=== PATIENT | female | born 1945 | race Caucasian/White ===

== ENCOUNTER 2017-11-22 12:30 | Emergency (ER) | payer MEDICARE, OTHER ==
--- NOTE | 2017-11-22 13:27 | XRAY Preliminary Report ---
Exam: XR CHEST 2 VIEW X-RAY IMPRESSION: Normal 2-view chest radiography. [facility] SITE ID: [id number]
--- NOTE | 2017-11-22 13:42 | ED Physician Documentation ---
PD HPI DYSPNEA - Stated complaint Stated Complaint: COUGH,SOA - Chief complaint Chief Complaint: Resp - History obtained from History obtained from: Patient - History of Present Illness Timing - onset: How many days ago (2-3) Timing - onset during: Light activity Timing - duration: Days Timing - details: Gradual onset, Still present Inciting event(s): URI (has cough and feeling of malaise.) Associated symptoms: Cough. No: Fever (but chills and malaise), Hemoptysis, Wheezing, Palpitations, Bilateral edema, Unilateral edema Similar symptoms before: Has not had sx before Recently seen: Surgery (had some reconstructive surgery on breast/scar tissue 6 days ago, with tight wrap on chest since (until today). Having some cough and dyspnea develop the past 2-3 days. No abrupt onset. Some mild chills and malaise. Has scratchy throat still, which has persisted since time of recovery from surgery.) Review of Systems Constitutional: reports: Chills, Myalgias. denies: Fever Nose: denies: Congestion Throat: reports: Sore throat Respiratory: reports: Dyspnea, Cough. denies: Wheezing GI: denies: Nausea, Vomiting, Diarrhea : denies: Dysuria, Frequency Skin: reports: Other (she has some wraps on srugical sites in ED and says she had looked at them earlier without signsf of infection.). denies: Rash Musculoskeletal: denies: Back pain, Extremity swelling Neurologic: reports: Generalized weakness. denies: Focal weakness, Numbness, Near syncope PD PAST MEDICAL HISTORY - Past Medical History Cardiovascular: None Neuro: None Endocrine/Autoimmune: None Psych: None Musculoskeletal: Osteoarthritis - Past Surgical History Past Surgical History: No General: Cholecystectomy /GROUP SALES MANAGER: Hysterectomy, Mastectomy, Other - Present Medications Home Medications: Ambulatory Orders Medication Instructions Recorded Confirmed Albuterol Sulf [Ventolin Hfa 1 - 2 puffs INH Q4HR PRN #1 inhaler 11/22/17 Inhaler] Anastrozole 1 mg PO DAILY 11/22/17 11/22/17 Benzonatate [Tessalon] 100 mg PO TID PRN #25 capsule 11/22/17 Dexamethasone [Decadron] 4 mg PO DAILY #5 tablet 11/22/17 - Allergies Allergies/Adverse Reactions: Allergies Allergy/AdvReac Type Severity Reaction Status Date / Time No Known Drug Allergies Allergy Verified 09/28/14 07:57 - Social History Does the pt smoke?: No Smoking Status: Never smoker Does the pt drink ETOH?: Yes Does the pt have substance abuse?: No PD ED PE NORMAL - Vitals Vital signs reviewed: Yes - General General: Alert and oriented X 3, No acute distress, Well developed/nourished - HEENT HEENT: Ears normal, Moist mucous membranes, Pharynx benign - Neck Neck: Supple, no meningeal sign, No adenopathy - Cardiac Cardiac: RRR, No murmur - Respiratory Respiratory: Clear bilaterally - Abdomen Abdomen: Soft, Non tender - Back Back: No CVA TTP - Derm Derm: Normal color, Warm and dry, Other (chest wall surgical sites have wraps on them now and deferred inspection at patient request. she says they appears okay earlier today without infection. ) - Extremities Extremities: No tenderness to palpate, Normal ROM s pain, No edema, No calf tenderness / cord - Neuro Neuro: Alert and oriented X 3, No motor deficit, Normal speech Results - Vitals Vitals: Oxygen O2 Source Room air - EKG (time done) 12:39 Rate: Rate (enter#) (85) Rhythm: NSR [place]: Normal Intervals: Normal [place] QRS: Normal Ischemia: Normal ST segments. No: ST elevation c/w ischemia, ST depression - Rads (name of study) chest Radiology: Prelim report reviewed (no acute process) PD MEDICAL DECISION MAKING - ED course Complexity details: reviewed results, considered differential, d/w patient Departure - Departure Disposition: 01 Home, Self Care Clinical Impression: Upper respiratory infection Qualifiers: URI type: unspecified URI Qualified Code(s): J06.9 - Acute upper respiratory infection, unspecified Dyspnea Qualifiers: Dyspnea type: shortness of breath Qualified Code(s): R06.02 - Shortness of breath Condition: Stable Record reviewed to determine appropriate education?: Yes Instructions: ED Upper Resp Infec No Abx Tx Follow-Up: Conrado Chua MD [Primary Care Provider] - Prescriptions: Albuterol Sulf [Ventolin Hfa Inhaler] 1 - 2 puffs INH Q4HR PRN #1 inhaler PRN Reason: Shortness Of Air/Wheezing Benzonatate [Tessalon] 100 mg PO TID PRN #25 capsule PRN Reason: Cough Dexamethasone [Decadron] 4 mg PO DAILY #5 tablet Comments: This sounds like you have either some irritation of the upper airway or likely viral illness given the cough and such. Your chest x-ray is clear without any signs of pneumonia. Your EKG is normal and your vital signs are good. There is no obvious severe process at this time. Use albuterol inhaler 2 puffs 4 times a day for the next 7-10 days. Keep the tight corset off and just use compressive stretchy clothing at this point. Purposeful deep breathing several times a day. Decadron daily for the next 5 days for inflammation of the upper airways. Add Tessalon if needed for cough. Recheck if worsening symptoms or if you have high fevers, purulent or productive cough, coughing blood, worse trouble breathing or other concerns. Discharge Date/Time: 11/22/17 14:46
--- NOTE | 2017-11-22 14:16 | XRAY Report ---
EXAM: CHEST RADIOGRAPHY EXAM DATE: 11/22/2017 01:06 PM. CLINICAL HISTORY: Chronic cough. COMPARISON: None. TECHNIQUE: 2 views. FINDINGS: Lungs/Pleura: No focal opacities evident. No pleural effusion. No pneumothorax. Normal volumes. Mediastinum: Heart and mediastinal contours are unremarkable. Other: Remote left breast surgery. Cholecystectomy. Kyphoscoliosis. IMPRESSION: Normal 2-view chest radiography. [facility] Referring Provider Line: [phone] SITE ID: [id number]
[2017-11-22] MEDS ORDERED: DEXAMETHASONE 10 MG/ML VIAL PO STA (14:35)
[2017-11-22 14:43] VITALS: BP 139/77
== END 2017-11-22 14:46 | disposition home or self-care (01) ==
LOC: ED 12:30
DX: J06.9 Acute upper respiratory infection, unspecified (principal); R06.02 Shortness of breath; R94.31 Abnormal electrocardiogram [ECG] [EKG]
CPT/HCPCS: 71046; 93005; 99283

== ENCOUNTER 2021-03-05 09:44 | Outpatient (CLI) | payer MEDICARE, OTHER ==
[2021-03-05 15:51] LABS: URIC ACID 4.6 mg/dL (2.6-7.2)
[2021-03-05 16:01] LABS: CRP - C-REACTIVE PROTEIN < 1.0 mg/dL (0-1.0)
[2021-03-05 17:00] LABS: RHEUMATOID FACTOR NEGATIVE (Negative)
[2021-03-07 16:46] LABS: ANA SCREEN NEGATIVE (NEGATIVE)
== END 2021-03-05 09:45 | disposition home or self-care (01) ==
LOC: LAB.S 09:44
PROVIDERS: ATTEND Internal Medicine
DX: M25.50 Pain in unspecified joint (principal); R60.0 Localized edema
CPT/HCPCS: 36415; 84550; 85379; 85651; 86038; 86140; 86430

== ENCOUNTER 2021-03-20 14:59 | Outpatient (CLI) | payer MEDICARE, OTHER ==
--- NOTE | 2021-03-20 16:59 | Ultrasound Report ---
PROCEDURE: Duplex Ext Veins Left INDICATIONS: EDEMA,LIMB TECHNIQUE: Real-time imaging, as well as color and pulse Doppler interrogation, were performed of the lower extr emity deep veins from the inguinal ligament to the popliteal fossa. COMPARISON: None. FINDINGS: The deep veins are normally compressible, and free of intraluminal thrombus. Color and pu lse Doppler demonstrate normal phasic intraluminal flow. There is normal augmentation response to di stal compression maneuver. IMPRESSION: No evidence of deep venous thrombosis. Reviewed by: Matt Glass MD on 03/20/2021 4:58 PM PDT Approved by: Matt Glass MD on 03/20/2021 4:58 PM PDT Station ID: [id number]
== END 2021-03-20 15:00 | disposition home or self-care (01) ==
LOC: DI 14:59
PROVIDERS: ATTEND Internal Medicine
DX: R60.0 Localized edema (principal)

== ENCOUNTER 2021-07-10 09:49 | Outpatient (CLI) | payer MEDICARE, OTHER ==
[2021-07-10 14:37] LABS: BASOPHILS # (AUTO) 0.1 10^3/uL (0.0-0.1); BASOPHILS % (AUTO) 2.3 %; EOSINOPHILS # (AUTO) 0.4 10^3/uL (0.0-0.7); EOSINOPHILS % (AUTO) 8.1 %; HCT - HEMATOCRIT 38.3 % (37.0-47.0); HGB - HEMOGLOBIN 11.9 g/dL (12.0-16.0); LYMPHOCYTES # (AUTO) 0.9 10^3/uL (1.5-3.5); LYMPHOCYTES % (AUTO) 17.4 %; MEAN CORPUSCULAR HEMOGLOBIN 28.6 pg (27.0-31.0); MEAN CORPUSCULAR HGB CONC 31.1 g/dL (32.0-36.0); MEAN CORPUSCULAR VOLUME 92.1 fL (81.0-99.0); MEAN PLATELET VOLUME 10.9 fL (7.9-10.8); MONOCYTES # (AUTO) 0.4 10^3/uL (0.0-1.0); MONOCYTES % (AUTO) 6.8 %; NEUTROPHILS # (AUTO) 3.4 10^3/uL (1.5-6.6); PLT - PLATELET COUNT 232 10^3/uL (130-450); RED BLOOD COUNT 4.16 10^6/uL (4.20-5.40); RED CELL DISTRIBUTION WIDTH 13.4 % (12.0-15.0); WHITE BLOOD COUNT 5.3 x10^3/uL (4.8-10.8)
[2021-07-10 15:01] LABS: ALBUMIN/GLOBULIN RATIO 1.3 (1.0-2.2); ALKALINE PHOSPHATASE 59 IU/L (42-121); ALT ALANINE AMINOTRANSFERASE 15 IU/L (10-60); AST ASPARTATE AMINOTRANSFERASE 13 IU/L (10-42); BILIRUBIN,TOTAL 0.6 mg/dL (0.2-1.0); BUN - BLOOD UREA NITROGEN 24 mg/dL (6-20); CALCIUM 9.5 mg/dL (8.5-10.3); CARBON DIOXIDE - CO2 30 mmol/L (21-32); CHLORIDE 102 mmol/L (101-111); CHOL/HDL RATIO 3.4 (<4.4); CHOLESTEROL 255 mg/dL; CREATININE 0.8 mg/dL (0.4-1.0); GFR - MDRD 70 (>89); GLUCOSE 130 mg/dL (70-100); HDL CHOLESTEROL 75 mg/dL; LDL CHOLESTEROL,CALCULATED 160 mg/dL; LDL/HDL RATIO 2.1 (<4.4); SODIUM 141 mmol/L (135-145); TOTAL PROTEIN 7.1 g/dL (6.7-8.2); TRIGLYCERIDES 98 mg/dL; VLDL CHOLESTEROL 20 mg/dL
== END 2021-07-10 09:50 | disposition home or self-care (01) ==
LOC: LAB.S 09:49
PROVIDERS: ATTEND Internal Medicine
DX: E78.5 Hyperlipidemia, unspecified (principal); Z79.899 Other long term (current) drug therapy
CPT/HCPCS: 36415; 80053; 80061; 83721; 85025

== ENCOUNTER 2024-05-18 13:19 | Outpatient (CLI) | payer MEDICARE, OTHER | END 2024-05-18 23:59 | disposition critical access hospital (66) | LOC: EMS 13:19 | DX: S01.81XA Laceration without foreign body of other part of head, initial encounter (principal); S01.21XA Laceration without foreign body of nose, initial encounter; S01.511A Laceration without foreign body of lip, initial encounter; W01.0XXA Fall on same level from slipping, tripping and stumbling without subsequent striking against object, initial encounter; Y92.481 Parking lot as the place of occurrence of the external cause | CPT/HCPCS: A0425; A0429 ==

== ENCOUNTER 2024-05-18 13:44 | Emergency (ER) | payer MEDICARE, OTHER ==
--- NOTE | 2024-05-18 13:54 | ED Physician Documentation ---
PD HPI Fall - Stated complaint Stated Complaint: GLF - Additional information Additional information: 78-year-old femaleWith history of osteoarthritis, cholecystectomy, hysterectomy, mastectomy presents emergency department via EMS after experiencing a mechanical ground-level fall. Patient says that she was going to push her car away at the grocery store and tripped over the curb and fell onto her right knee and face. She says that she is not on blood thinners no loss of consciousness no nausea vomiting. There is bleeding noted from her face her nose region her right hand and right knee. PD PAST MEDICAL HISTORY - Past Medical History Cardiovascular: None Endocrine/Autoimmune: None Psych: None Musculoskeletal: Osteoarthritis - Past Surgical History Past Surgical History: No General: Cholecystectomy /ROLL FORM OPERATOR: Hysterectomy, Mastectomy, Other - Present Medications Home Medications: Ambulatory Orders Medication Instructions Recorded Confirmed Albuterol Sulf [Ventolin Hfa 1 - 2 puffs INH Q4HR PRN #1 inhaler 11/22/17 Inhaler] Anastrozole 1 mg PO DAILY 11/22/17 11/22/17 Benzonatate [Tessalon] 100 mg PO TID PRN #25 capsule 11/22/17 dexAMETHasone [Decadron] 4 mg PO DAILY #5 tablet 11/22/17 Amox/Clav 875/125 [Augmentin 1 tablet PO Q12H 5 Days #10 tablet 05/18/24 875/125 Tab] - Allergies Allergies/Adverse Reactions: Allergies Allergy/AdvReac Type Severity Reaction Status Date / Time No Known Drug Allergies Allergy Verified 05/18/24 13:56 - Social History Does the pt smoke?: No Smoking Status: Never smoker Does the pt drink ETOH?: Yes Does the pt have substance abuse?: No PD ED PE NORMAL - Vitals Vital signs reviewed: Yes - General General: Alert and oriented X 3 - HEENT HEENT: PERRL, Other (Laceration to bridge of nose, 2 lacerations to forehead, bilateral bruising and swelling to both eyes.) - Neck Neck: No bony TTP, C-Spine cleared by NEXUS criteria - Cardiac Cardiac: RRR - Respiratory Respiratory: No respiratory distress - Abdomen Abdomen: Normal bowel sounds - Derm Derm: Other (Abrasion to right knee, laceration to bridge of nose, 2 lacerations to forehead, laceration to right ulnar aspect of hand.) - Extremities Extremities: No deformity, No tenderness to palpate, No edema, No calf tenderness / cord - Neuro Neuro: Alert and oriented X 3, 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, No motor deficit, No sensory deficit, Normal speech Eye Opening: Spontaneous Motor: Obeys Commands Verbal: Oriented GCS Score: 15 - Psych Psych: Normal mood, Normal affect Results - Vitals Vitals: Vital Signs - 24 hr 05/18/24 05/18/24 05/18/24 13:50 16:25 17:30 Temperature 36.7 C Heart Rate 66 66 80 Respiratory 17 18 18 Rate Blood Pressure 184/80 H 159/77 H 177/80 H O2 Saturation 100 100 98 Oxygen O2 Source Room air - Labs Labs: Laboratory Tests 05/18/24 05/18/24 14:15 14:15 WBC 7.8 RBC 3.68 L Hgb 10.8 L Hct 33.1 L MCV 89.9 MCH 29.3 MCHC 32.6 RDW 13.2 Plt Count 190 MPV 9.9 Neut # (Auto) 6.1 Lymph # (Auto) 0.9 L Davison # (Auto) 0.4 Eos # (Auto) 0.3 Baso # (Auto) 0.1 Absolute Nucleated RBC 0.00 Nucleated RBC % 0.0 Sodium 138 Potassium 3.9 Chloride 104 Carbon Dioxide 30 Anion Gap 4.0 L BUN 17 Creatinine 0.8 Estimated GFR (MDRD) 69 L Glucose 115 H Calcium 9.7 Magnesium 1.6 L Total Bilirubin 0.4 AST 12 ALT 10 Alkaline Phosphatase 46 Total Protein 6.2 L Albumin 3.9 Globulin 2.3 Albumin/Globulin Ratio 1.7 Lipase 15 - Rads (name of study) Head CT without Relevant Findings:: Final report received, EMP independent interpretation of test, Other (No intracranial hemorrhages or abnormalities) Cervical spine without Relevant Findings:: Final report received, EMP independent interpretation of test, Other (No subluxation or fractures) Maxillofacial without Relevant Findings:: Final report received, EMP independent interpretation of test, Other (Comminuted tip of nasal bone fracture and anterior inferior nasal spine fracture) Procedures - Laceration (location) Bridge of nose Length in cm: 1 Wound type: Curved, Clean Anesthesia: LET Wound preparation: Hibiclens, Irrigated copiously NS, Wound explored, To the base Skin layer closure: Dermabond, Steri strips Other: Patient tolerated well, No complications, Tetanus UTD Right forehead Length in cm: 1.2 Wound type: Linear, Into subcut fat Anesthesia: LET Wound preparation: Hibiclens, Wound explored, To the base Skin layer closure: Dermabond, Steri strips Other: Patient tolerated well, No complications left forhead Length in cm: 1.3 Wound type: Linear Anesthesia: LET Wound preparation: Chlorhexadine Skin layer closure: Dermabond, Steri strips Other: Patient tolerated well, No complications upper lip, under nose Length in cm: 0.5 (not involving tyson borfer) Wound type: Flap Anesthesia: LET, Lidocaine 2% Wound preparation: Chlorhexadine, Irrigated copiously NS, Wound explored, To the base Skin layer closure: Nylon, Interrupted, Size #-0 - enter number (5-0), Sutures - enter # (3) Other: Patient tolerated well, No complications, Dressing applied right ulnar hand Length in cm: 1.5 Wound type: Curved, Flap, Into subcut fat, Contaminated Neurovascular status: Sensory intact, Motor intact Anesthesia: LET, Lidocaine 2% Wound preparation: Chlorhexadine, Irrigated copiously NS, Wound explored, To the base Skin layer closure: Nylon, Interrupted, Size #-0 - enter number (4-0), Sutures - enter # (3) Other: Patient tolerated well, No complications, Neurovascular intact, Dressing applied, Tetanus UTD PD Medical Decision Making - ED course ED course: 78-year-old female presents emergency department after sustaining a mechanical ground-level fall onto her face. CT head was complete for further evaluation no intracranial hemorrhages or abnormalities are visualized. CT cervical without was also complete no subluxation or fractures of the neck was also seen. CT maxillofacial without did reveal that she had a comminuted tip of nasal bone fracture and anterior inferior nasal spine fractures. She also had a small superficial laceration over the bridge of her nose and because of this organ to go ahead and start her on Augmentin out of an abundance of precaution. She was given her first dose of Augmentin here in the emergency department and prescription of Augmentin was sent to her preferred pharmacy. She also had 2 deep lacerations on her forehead that were linear and I repaired those both with Dermabond and Steri-Strips. Below her nose just above her lip not including the vermilion border she had a deep laceration did require 3 sutures it does appear that her tooth minimally went through her lip no stitches were required on the inside of her lip no broken teeth no pain with palpation of her teeth or upper jaw. She also had a right knee superficial abrasion that was cleansed and bacitracin applied over that as well as a deep laceration to the ulnar aspect of her right hand just below her right pinky. 3 stitches were placed over there. She was given return precautions and taught how to manage these wounds at home. She is follow-up with her primary care provider all questions answered she is safe for discharge at this time Tylenol given to her in the emergency department she is told to alternate between Tylenol ibuprofen at home. Departure - Departure Disposition: Home, Self Care Clinical Impression: Ground-level fall, Nasal bone fracture, Head injury, Forehead laceration, Hand laceration Instructions: ED Abrasion, ED Laceration Hand, ED Laceration Facial Skin Glue Follow-Up: [facility] [place] [Provider Group] Prescriptions: Amox/Clav 875/125 [Augmentin 875/125 Tab] 1 tablet PO Q12H 5 Days #10 tablet Comments: Thank you for trusting us with your care.We have placed Steri-Strips on your dose of the 2 lacerations on your forehead those can come off on their own if they are still there in 8 to 10 days you can remove them on your own. We have placed 3 sutures on your upper lip you will remove those in 5 days and placed 3 sutures in your right hand [id number] male with those in 12 days. Please follow-up with [facility] in [place] give them a call first thing Tuesday let them know about today's ER visit and let them know that you have a comminuted tip of nasal bone fracture and anterior inferior nasal spine fracture. Please come back to the ER if you have any worsening symptoms you can take 1000 mg of Tylenol every 8 hours and 500 mg of naproxen every 12 hours For pain and discomfort you can apply ice for 20 minutes at a time 1 hour off you are going to be very sore for the next 2 to 3 days make sure that you are trying to still get up and walk around so that you do not get too stiff the more you lay around the more stiff you will get. Come back for any signs of infection which would include: Redness, swelling, drainage, increased pain, or fevers. You can wash it soap and water. Keep it covered and moist with bacitracin ointment which is available over the counter; avoid neosporin. Wishing you a speedy recovery and then do not hesitate to return back to the emergency department for any concerning symptoms. Forms: PCP List Discharge Date/Time: 05/18/24 17:31
[2024-05-18 14:24] LABS: BASOPHILS # (AUTO) 0.1 10^3/uL (0.0-0.1); BASOPHILS % (AUTO) 1.4 %; EOSINOPHILS # (AUTO) 0.3 10^3/uL (0.0-0.7); EOSINOPHILS % (AUTO) 3.5 %; HCT - HEMATOCRIT 33.1 % (37.0-47.0); HGB - HEMOGLOBIN 10.8 g/dL (12.0-16.0); LYMPHOCYTES # (AUTO) 0.9 10^3/uL (1.5-3.5); LYMPHOCYTES % (AUTO) 11.1 %; MEAN CORPUSCULAR HEMOGLOBIN 29.3 pg (27.0-31.0); MEAN CORPUSCULAR HGB CONC 32.6 g/dL (32.0-36.0); MEAN CORPUSCULAR VOLUME 89.9 fL (81.0-99.0); MEAN PLATELET VOLUME 9.9 fL (7.9-10.8); MONOCYTES # (AUTO) 0.4 10^3/uL (0.0-1.0); MONOCYTES % (AUTO) 5.4 %; NEUTROPHILS # (AUTO) 6.1 10^3/uL (1.5-6.6); NEUTROPHILS % (AUTO) 78.3 %; PLT - PLATELET COUNT 190 10^3/uL (130-450); RED BLOOD COUNT 3.68 10^6/uL (4.20-5.40); RED CELL DISTRIBUTION WIDTH 13.2 % (12.0-15.0); WHITE BLOOD COUNT 7.8 x10^3/uL (4.8-10.8)
[2024-05-18] MEDS: ACETAMINOPHEN 325 MG TABLET PO STA (14:25)
[2024-05-18] MEDS: KETOROLAC 15 MG/ML VIAL IVP STA (14:25)
[2024-05-18] MEDS: LIDOCAINE-EPINEPH-TETRACAINE 3 ML SYRINGE TOP STA (14:26)
[2024-05-18 14:42] LABS: ALBUMIN 3.9 g/dL (3.2-5.5); ALBUMIN/GLOBULIN RATIO 1.7 (1.0-2.2); BILIRUBIN,TOTAL 0.4 mg/dL (0.2-1.0); CALCIUM 9.7 mg/dL (8.5-10.3); CREATININE 0.8 mg/dL (0.6-1.3); MAGNESIUM 1.6 mg/dL (1.7-2.3); POTASSIUM 3.9 mmol/L (3.5-4.5); TOTAL PROTEIN 6.2 g/dL (6.4-8.9)
--- NOTE | 2024-05-18 15:41 | CT Report ---
PROCEDURE: Head WO INDICATIONS: GLF, head injury TECHNIQUE: Noncontrast 4.5 mm thick angled axial sections acquired from the foramen magnum to the vertex. For r adiation dose reduction, the following was used: automated exposure control, adjustment of mA and/or kV according to patient size. COMPARISON: None. FINDINGS: Image quality: Excellent. CSF spaces: Basal cisterns are patent. No extra-axial fluid collections. Ventricles are normal in size and shape. Brain: No midline shift. No intracranial masses or hemorrhage. Vogel-white matter interface is norm al. Skull and face: Calvarium and visualized facial bones are intact, without suspicious lesions. Sinuses: Visualized sinuses and mastoids are clear. IMPRESSION: No acute intracranial pathology. Reviewed by: Joseph Vargas MD on 05/18/2024 3:40 PM PDT Approved by: Joseph Vargas MD on 05/18/2024 3:40 PM PDT Station ID: [id number]
--- NOTE | 2024-05-18 15:44 | CT Report ---
PROCEDURE: Cervical Spine WO INDICATIONS: GLF, hit head TECHNIQUE: Noncontrast 3 mm thick sections acquired from the skull base to the T4 level. Sagittal and coronal r eformats were then constructed. For radiation dose reduction, the following was used: automated exp osure control, adjustment of mA and/or kV according to patient size. COMPARISON: CT head from the same date. FINDINGS: Image quality: Excellent. Bones: No fractures or dislocations. Visualized superior ribs are intact. Cervical spondylosis. Ch ronic disc height loss and disc osteophyte complex and uncovertebral joint hypertrophy at C3-C4 and C 5-C6. There is bilateral bony foraminal narrowing at both of these levels. Soft tissues: Prevertebral soft tissues are normal in thickness. No paravertebral hematomas. No ap ical pneumothoraces. Biapical pleural-parenchymal scarring. IMPRESSION: 1. No acute cervical fracture or dislocation. 2. Cervical spondylosis with bilateral bony foraminal narrowing. Reviewed by: Joseph Vargas MD on 05/18/2024 3:42 PM PDT Approved by: Joseph Vargas MD on 05/18/2024 3:42 PM PDT Station ID: [id number]
--- NOTE | 2024-05-18 15:47 | CT Report ---
PROCEDURE: Maxillofacial WO INDICATIONS: GLF, head injury TECHNIQUE: Noncontrast 1.5 mm thick axial images acquired from the mandible through the frontal sinuses, with co alireza and sagittal reformatting. For radiation dose reduction, the following was used: automated ex posure control, adjustment of mA and/or kV according to patient size. COMPARISON: None. FINDINGS: Image quality: Excellent. Bones and teeth: Orbital mcqueen are intact. Sinus mcqueen show no fracture or deformity comminuted tip of nasal bone fracture. Associated skin laceration. Anterior-inferior nasal spine fracture. No nasal septal fracture. Nasal septal deviation to the left. Visualized portions of the mandible demonstrate no fractures or subluxation. Zygomatic arches are intact. Pterygoid plates are intact. Visualized portions of the skull base and auditory canals are intact. Sinuses: Paranasal sinuses are aerated, without fluid levels, mucosal thickening, or mucoceles. Mas toid air cells are aerated. Soft tissues: No edema, masses, or fluid collections. No enlarged lymph nodes. No soft tissue lace rations or debris. Vascular: Visualized vascular structures appear normal in the absence of contrast. Bony vascular fo ramina and canals are intact. IMPRESSION: 1. Comminuted tip of nasal bone fracture and anterior inferior nasal spine fracture. 2. No other facial bone fractures or mandibular fractures identified. Reviewed by: Joseph Vargas MD on 05/18/2024 3:45 PM PDT Approved by: Joseph Vargas MD on 05/18/2024 3:45 PM PDT Station ID: [id number]
[2024-05-18] MEDS: BACITRACIN ZINC OINT 1 PACKET TOP STA (17:23)
[2024-05-18] MEDS: AMOX/CLAV 875 MG/125 MG TABLET PO STA (17:23)
[2024-05-18 17:35] VITALS: BP 177/80; O2SAT 98
== END 2024-05-18 17:31 | disposition home or self-care (01) ==
LOC: EDUNIT# → ED 13:44
DX: S01.21XA Laceration without foreign body of nose, initial encounter (principal); S01.81XA Laceration without foreign body of other part of head, initial encounter; S05.12XA Contusion of eyeball and orbital tissues, left eye, initial encounter; S05.11XA Contusion of eyeball and orbital tissues, right eye, initial encounter; S80.211A Abrasion, right knee, initial encounter; S60.511A Abrasion of right hand, initial encounter; S01.511A Laceration without foreign body of lip, initial encounter; S02.2XXA Fracture of nasal bones, initial encounter for closed fracture; S06.9X0A Unspecified intracranial injury without loss of consciousness, initial encounter; W18.09XA Striking against other object with subsequent fall, initial encounter; Y93.89 Activity, other specified; Y92.481 Parking lot as the place of occurrence of the external cause
CPT/HCPCS: 12001; 12013; 36415; 70450; 70486; 72125; 80053; 83690; 83735; 85025; 96374; 99284; A9270